=== PATIENT | male | born 1970 | race Caucasian/White ===

== ENCOUNTER → 2017-08-26 | Outpatient (CLI) | payer BC | LOC: MHCPAIN 11:46 | DX: G89.29 Other chronic pain (principal); M47.817 Spondylosis without myelopathy or radiculopathy, lumbosacral region; F17.220 Nicotine dependence, chewing tobacco, uncomplicated | CPT/HCPCS: G0463 ==

== ENCOUNTER → 2017-12-01 | Outpatient (CLI) | payer BC | LOC: MHCPAIN 10:52 | DX: G89.29 Other chronic pain (principal); M47.817 Spondylosis without myelopathy or radiculopathy, lumbosacral region; M53.3 Sacrococcygeal disorders, not elsewhere classified | CPT/HCPCS: G0463 ==

== ENCOUNTER → 2018-06-10 | Outpatient (REF) ==
[2018-06-10 17:05] LABS: PSA-TOTAL 0.3 ng/mL (0-4)
[2018-06-10 17:24] LABS: THYROID STIMULATING HORMONE 1.04 uIU/mL (0.465-4.680)
== END ==
LOC: ZLAB.WCH 15:58
PROVIDERS: Physician Assistant
DX: Z01.89 Encounter for other specified special examinations (principal)
CPT/HCPCS: G0103

== ENCOUNTER 2018-11-27 13:02 | Inpatient (IN) | payer BC ==
[2018-12-11] VITALS (9 sets, daily range): BP systolic 131–151; BP diastolic 74–97; PULSE 89–100; TEMP 97.6
[2018-12-11 11:23] LABS: BASO % 0.6 % (0.0-2.0); EOS # 0.3 (0.0-0.7); EOS % 5.1 % (0-4.0); GRAN # 3.6 (1.4-6.5); GRAN % 54.5 % (42.2-75.2); HEMATOCRIT 48.6 % (42.0-52.0); HEMOGLOBIN 17.2 g/dl (13.5-18.0); MEAN CELL VOLUME 82 fl (80.0-100.0); MEAN CORPUSCULAR HEMOGLOBIN 29 pg (27.0-31.0); MEAN CORPUSCULAR HGB CONC 35 g/dl (33.0-37.0); MEAN PLATELET VOLUME 10.6 fl (7.4-10.4); MONO # 0.6 (0.1-0.6); MONO % 9.3 % (1.7-9.3); PLATELET COUNT 224 K/mm3 (130-400); RED BLOOD COUNT 5.92 M/mm3 (4.20-5.60); REDCELL DISTRIBUTION WIDTH-CV 12.7 % (11.5-14.5)
[2018-12-11 11:29] LABS: CREATININE, serum 1.06 mg/dL (0.66-1.25); POTASSIUM 4.1 mmol/L (3.4-5.0)
--- NOTE | 2018-12-11 13:15 | NUR ---
Pt arrived to floor at this time via bed with OR staff. Resting in bed, awakens easily and c/o pain to abd. Will verify orders. Abd had 6 lap sites BRANDYN, gauze and tegardem around carissa drain site. Drain has sanguinous drainage to bulb suction. Yun draining scant amount of rita urine. IVF to LF. at bedside, will continue to monitor.
[2018-12-11] MEDS ORDERED: ZESTRIL40 MG PO (14:56)
--- NOTE | 2018-12-11 15:18 | NUR ---
PT c/o gas pain to L shoulder, warm pack provided and pt agreeable to it but morphine given for pain not helping. Called [facility] and left a VM, will await call back regarding blood pressure, remains at bedside, will continue to monitor.
--- NOTE | 2018-12-11 15:33 | NUR ---
SW met with patient and about discharge planning. Patient lives independently at home with his . Patient's PCP is Ana Cristina Sanderson and he obtains prescriptions from [facility]. Patient does not use any DME or home health services. Patient does not have a DPOA and is not interested in that at this time but maybe in the future. SW does not anticipate any discharge needs.
--- NOTE | 2018-12-11 16:38 | NUR ---
Received call back from [facility], orders received and will implement.
--- NOTE | 2018-12-11 17:36 | NUR ---
Pt resting in bed wtih eyes closed. Warm pack to left shoulder for pain. PRN pain meds provided twice but pain was not being helped as it is most likely gas pain and narcotic pain meds do not assist. IVF to LF. Sanguinous drainage around carissa drain site, dressing changed to larger dressing. Moderate amoutn of sanguinous drainage in carissa drain. lap sites are well approximated without drainage. SCDs on, will give bedside shift report to [facility] nurse who will resume care.
[2018-12-11 17:57] LABS: HEMATOCRIT 48.3 % (42.0-52.0); HEMOGLOBIN 16.6 g/dl (13.5-18.0); MEAN CELL VOLUME 83 fl (80.0-100.0); MEAN CORPUSCULAR HEMOGLOBIN 29 pg (27.0-31.0); MEAN CORPUSCULAR HGB CONC 34 g/dl (33.0-37.0); MEAN PLATELET VOLUME 10.5 fl (7.4-10.4); PLATELET COUNT 208 K/mm3 (130-400); RED BLOOD COUNT 5.81 M/mm3 (4.20-5.60); REDCELL DISTRIBUTION WIDTH-CV 12.9 % (11.5-14.5)
[2018-12-11 18:29] LABS: ANISOCYTOSIS 1+; BAND 3 % (0-10); LYMPHOCYTE 4 % (20.0-51.0); NEUTROPHILS 93 % (42.0-75.2); PLATELET ESTIMATE NORMAL (NORMAL)
--- NOTE | 2018-12-11 21:00 | NUR ---
Patient in bed, alert and oriented x4. Complains of abdominal and shoulder discomfort. Has warm packs to shoulders and was previously medicated with Morphine IV for pain. JYOTHI to bulb suction with bloody drainage. Yun to BSD with bloody tinged urine with sediment noted. SCD's on bilaterally. Taking ice chips without nausea or vomiting. Lap sites dry to abdomen, bowel sounds active.
[2018-12-12] VITALS (7 sets, daily range): BP systolic 95–153; BP diastolic 56–87; PULSE 77–92; TEMP 97.7–99.2
--- NOTE | 2018-12-12 00:08 | NUR ---
Reports pain 8/10 to right abdomen. Medicated with IV Morphine 3mg now as well as scheduled ES Tylenol po.
--- NOTE | 2018-12-12 04:40 | NUR ---
Patient moaning, complains of difficulty taking a deep breath. Had patient reposition to left side, belches alot of gas at that time. Medicated with IV Morphine for 7/10 pain to right abdomen. Continues to take ice chips without problem. IV fluids to left hand at 100cc/hr without redness or swelling.
[2018-12-12 06:17] LABS: BASO % 0.3 % (0.0-2.0); EOS % 0.1 % (0-4.0); GRAN # 7.4 (1.4-6.5); GRAN % 68.7 % (42.2-75.2); HEMATOCRIT 42.8 % (42.0-52.0); LYMPH % 18.8 % (20.0-51.0); MEAN CELL VOLUME 85 fl (80.0-100.0); MEAN CORPUSCULAR HEMOGLOBIN 29 pg (27.0-31.0); MEAN CORPUSCULAR HGB CONC 34 g/dl (33.0-37.0); MEAN PLATELET VOLUME 10.2 fl (7.4-10.4); MONO # 1.3 (0.1-0.6); MONO % 11.7 % (1.7-9.3); PLATELET COUNT 230 K/mm3 (130-400); RED BLOOD COUNT 5.03 M/mm3 (4.20-5.60); REDCELL DISTRIBUTION WIDTH-CV 13.2 % (11.5-14.5)
[2018-12-12 06:20] LABS: HEMOGLOBIN 14.4 g/dl (13.5-18.0)
[2018-12-12 06:36] LABS: ALBUMIN 3.6 gm/dL (3.5-5.0); CREATININE, serum 1.39 mg/dL (0.66-1.25); POTASSIUM 4.4 mmol/L (3.4-5.0); TOTAL PROTEIN 6.3 gm/dL (6.4-8.2)
--- NOTE | 2018-12-12 06:40 | NUR ---
Medicated with IV Morphine 3mg now for pain 03/22. Laying on his back again, SCD's placed back on patient.
--- NOTE | 2018-12-12 10:34 | NUR ---
Yun Catheter DCd at this time. Tolerated well.
--- NOTE | 2018-12-12 16:26 | NUR ---
1034 Yun cath DCd at this time. Tolerated well.
--- NOTE | 2018-12-12 19:50 | NUR ---
Patient has approx 200cc of liquid emesis with undigested food particles noted. Reports feeling better after emesis.
--- NOTE | 2018-12-12 21:28 | NUR ---
Patient reports passing flatus. Belching loudly. No further emesis after administration of IV Zofran. Ambulating in hallway.
--- NOTE | 2018-12-13 00:31 | NUR ---
Patient complains of nausea, sits at edge of bed, belching into a basin without emesis. Complains of being "hot", cool washcloth given, is afebrile at this time.
--- NOTE | 2018-12-13 01:35 | NUR ---
Patient resting in bed, no further complaints of nausea, will hold ES Tylenol at this time.
[2018-12-13 04:13] VITALS: BP 149/87; PULSE 84; TEMP 98
--- NOTE | 2018-12-13 05:17 | NUR ---
Patient has approx. 200cc of clear fluid with green flecks of emesis at this time. Oxycodone tablet was not noted in fluid. Patient reports feeling better after emesis. Was medicated with Zofran prior to Oxycodone at 0420.
--- NOTE | 2018-12-13 06:32 | NUR ---
Up ambulating in hallway, gait steady. Had voided 600cc per urinal. Encouraged to remain up in chair after walk.
[2018-12-13 07:51] VITALS: BP 138/93; PULSE 92; TEMP 98.9
--- NOTE | 2018-12-13 08:00 | NUR ---
Patient resting in bed at this time. Patient rouses easily, is alert and oriented while awake, answers questions appropriately. lap sites to abdomen are well approximated, clean and dry. JYOTHI drain to right abdomen in place, moderate amount of bloody drainage in bulb. Patient denies pain or nausea at this time, call light within reach.
[2018-12-13 11:26] VITALS: BP 146/86; PULSE 70; TEMP 98.9
[2018-12-13 13:20] LABS: HEMATOCRIT 38.9 % (42.0-52.0); MEAN CELL VOLUME 86 fl (80.0-100.0); MEAN CORPUSCULAR HEMOGLOBIN 29 pg (27.0-31.0); MEAN CORPUSCULAR HGB CONC 33 g/dl (33.0-37.0); MEAN PLATELET VOLUME 10.1 fl (7.4-10.4); PLATELET COUNT 166 K/mm3 (130-400); RED BLOOD COUNT 4.54 M/mm3 (4.20-5.60); REDCELL DISTRIBUTION WIDTH-CV 12.8 % (11.5-14.5)
[2018-12-13 16:14] VITALS: BP 153/87; PULSE 86; TEMP 97.9
--- NOTE | 2018-12-13 18:19 | NUR ---
Patient currently up ambulating in hallway with family. Patient is alert and oriented. Pain has been well controlled on ERAS protocol, but patient has had two episodes of nausea, no emesis reported. Patient was able to have a large, semi formed bowel movement. JYOTHI drain was removed per order, patient tolerated procedure well. Drain site dressed with gauze and ABD pad. Patient denies further needs at this time, call light within reach.
[2018-12-13 20:35] VITALS: BP 139/82; PULSE 84; TEMP 98.2
--- NOTE | 2018-12-13 21:00 | NUR ---
Patient resting in bed. Taking oral fluids well. Has had another loose stool and is voiding without problem. Capped IVF at this time. No nausea since early this AM. Patient taking only scheduled pain meds of Gabapentin and ES Tylenol, rates pain 2-3/10 at this time. Instructed patient to call if pain should worsen or nausea should return. He verbalized understanding.
[2018-12-13 23:48] VITALS: BP 129/76; PULSE 87; TEMP 98.8
[2018-12-14 03:45] VITALS: BP 133/80; PULSE 81; TEMP 98.8
--- NOTE | 2018-12-14 06:00 | NUR ---
Patient awake. Reports another loose stool this AM. Wants to increase his diet. Takes ES Tylenol for pain to right abdomen of 4/10. Has good oral intake since capping of IVF. No nausea or vomiting this shift.
[2018-12-14 07:39] VITALS: BP 128/76; PULSE 77; TEMP 98.6
--- NOTE | 2018-12-14 08:00 | NUR ---
PATIENT IS A&O. VSS. AMBULATING IN ROOM INDEPENDENTLY. GAIT STEADY. C/O MILD ABDOMINAL TENDERNESS. ABDOMIN SLIGHTLY DISTENDED, SOFT AND WITH HYPERACTIVE BOWL SOUNDS. PATIENT REPORTS FREQUENT BM'S. ABDOMINAL LAP SITES X6 CD'I WITH SWIFTSET. PREVIOUS JYOTHI DRAIN SITE DRESSING CHANGED TO 4X4'S AND HYPAFIX. HEAD TO TOE ASSESSMENT WNL. NO C/O N/V. LEFT HAND IV TO INT. PATIENT HOPING TO HAVE DIET ADVANCED TODAY AND TO DISCHARGE HOME LATER. ROUNDED. AWAITING UROLOGY. NO OTHER NEEDS.
[2018-12-14 12:17] VITALS: BP 137/75; PULSE 84; TEMP 98
[2018-12-14 15:55] VITALS: BP 123/72; PULSE 76; TEMP 98.9
--- NOTE | 2018-12-14 18:26 | NUR ---
PATIENT DISCHARGING HOME VIA WHEELCHAIR TO PERSONAL VEHICLE WITH FAMILY. GAVE DISCHARGE INSTRUCTIONS, PRESCRIPTIONS AND FOLLOW UP APTS. ANSWERED ALL QUESTIONS/CONCERNS. SENT HOME PERSONAL BELONGINGS. DC'D LEFT HAND IV, COVERED WITH GAUZE & TAPE. PATIENT DISCHARED.
== END 2018-12-14 18:26 | disposition home or self-care (01) | DRG 657 ==
LOC: SURG 12-11 07:30
PROVIDERS: Surgery; ADMIT Urology
PROC: 8E0W4CZ Robotic Assisted Procedure of Trunk Region, Percutaneous Endoscopic Approach (ICD-10-PCS; 2018-12-11)
PROC: 0TB04ZZ Excision of Right Kidney, Percutaneous Endoscopic Approach (ICD-10-PCS; principal; 2018-12-11 07:30)
PROC: 0FT44ZZ Resection of Gallbladder, Percutaneous Endoscopic Approach (ICD-10-PCS; 2018-12-11 07:30)
DX: C64.1 Malignant neoplasm of right kidney, except renal pelvis (principal); K80.10 Calculus of gallbladder with chronic cholecystitis without obstruction; I10 Essential (primary) hypertension; M54.9 Dorsalgia, unspecified; G89.29 Other chronic pain; D75.1 Secondary polycythemia; E29.1 Testicular hypofunction; G47.33 Obstructive sleep apnea (adult) (pediatric)
CPT/HCPCS: A4314; A9284; J0360; J0690; J1100; J1170; J2250; J2270; J2405; J2704; J2710; J2795; J3010; J3480; J7120